=== PATIENT | female | born 1940 | race Caucasian/White ===

== ENCOUNTER → 2017-03-09 | Outpatient (CLI) | payer OTHER ==
--- NOTE | 2017-03-09 13:22 | MAMMOGRAPHY REPORT ---
BILATERAL DIGITAL SCREENING MAMMOGRAM WITH CAD: 03/09/2017 CLINICAL HISTORY: Routine screening. Patient has no complaints. TECHNIQUE: Bilateral CC and MLO views were obtained. Current study was also evaluated with a Compute r Aided Detection (CAD) system. COMPARISON: Comparison is made to exams dated: 03/04/2016 mammogram, 03/01/2015 mammogram, 02/23/2014 m ammogram, 02/21/2013 mammogram, 02/17/2012 mammogram, and 02/12/2011 mammogram - [facility]. BREAST COMPOSITION: The tissue of both breasts is almost entirely fatty. FINDINGS: There is stable focal asymmetry in the 8:00 anterior right breast. A few benign-appearing calcifications in the right breast. No new suspicious mass, architectural distortion or cluster of m icrocalcifications is seen. ACR BI-RADS CATEGORY 1: NEGATIVE There is no mammographic evidence of malignancy. A 1 year screening mammogram is recommended. The pa tient will receive written notification of the results. Approximately 10% of breast cancers are not detected with mammography. A negative mammographic report should not delay biopsy if a clinically suggestive mass is present. Rhianna Velasquez M.D. ay/:03/09/2017 08:38:00 Animal Cytologist: Magda KWON(R)(M)(BD), [facility] letter sent: Normal 1/2 BI-RADS Code: ACR BI-RADS Category 1: Negative
== END | disposition home or self-care (01) ==
LOC: C.MAMM 07:53
PROVIDERS: ATTEND Family Medicine
DX: Z12.31 Encounter for screening mammogram for malignant neoplasm of breast (principal)

== ENCOUNTER 2023-06-23 10:13 | Observation (INO) ==
--- NOTE | 2023-05-20 12:11 | PAT Medication Instructions ---
Medication Instructions Date of Service May 20, 2023 Home Medications diphenhydramine 25 mg-acetaminophen 500 mg tablet (Tylenol PM Extra Strength) 1 tab PO HS PRN sleep tamoxifen 20 mg tablet 20 mg PO QAM ropinirole 0.5 mg tablet 0.5 mg PO QPM acetaminophen 500 mg capsule 500 - 1,000 mg PO Q6H PRN Pain latanoprost 0.005 % eye drops 1 drp OPB HS ASK your prescriber and surgeon tamoxifen 20 mg tablet 20 mg PO QAM Take morning of surgery With a small sip of water, OTHERWISE NOTHING TO EAT OR DRINK AFTER MIDNIGHT: acetaminophen 500 mg capsule 500 - 1,000 mg PO Q6H PRN Pain (if needed) Take evening before surgery diphenhydramine 25 mg-acetaminophen 500 mg tablet (Tylenol PM Extra Strength) 1 tab PO HS PRN sleep (if needed) ropinirole 0.5 mg tablet 0.5 mg PO QPM acetaminophen 500 mg capsule 500 - 1,000 mg PO Q6H PRN Pain (if needed) latanoprost 0.005 % eye drops 1 drp OPB HS Other Notes If you have any questions please call us at [phone] or [phone] or [phone] or [phone]
--- NOTE | 2023-05-27 09:19 | Anesthesiology Consultation ---
Date of Service May 27, 2023 Assessment & Plan (1) Encounter for pre-operative examination: - Infectious disease screening: Per assessment on 05/27/23: No known infectious disease contacts or current infectious disease symptoms. No noted Covid positive test result in past 90 days. - Outpatient joint assessment: Pt currently scheduled for inpatient pathway. If surgeon requests review for outpatient joint pathway, patient is not recommended candidate for outpatient joint program from anesthesia standpoint. Chart Review Chart Review: Acceptable Risk for Surgery and Patient seen in Pre Admission Testing Teaching & Discussion Pre-Anesthesia Teaching/Discussion Notes: Instructed NPO after midnight before surgery,except medications with 15 cc of water. Medication instructions provided according to the PAT guidelines. p History Surgery Operation Date: 06/23/23 12:10 Proposed Procedures p Right Total Knee Arthroplasty - Kamran Nicholson DO Height/Weight Height: 5 ft 6 in Weight: 83.6 kg Allergies Allergy/AdvReac Type Severity Reaction Status Date / Time No Known Allergies Allergy Verified 05/20/23 11:09 Medications Home Medications Medication Instructions Recorded Confirmed Last Taken diphenhydramine 25 1 tab PO HS PRN sleep 07/14/18 05/20/23 04/08/20 mg-acetaminophen 500 mg tablet (Tylenol PM Extra Strength) tamoxifen 20 mg tablet 20 mg PO QAM 04/13/19 05/20/23 04/29/20 ropinirole 0.5 mg tablet 0.5 mg PO QPM 04/01/20 05/20/23 04/29/20 acetaminophen 500 mg capsule 500 - 1,000 mg PO Q6H PRN Pain 05/20/23 05/20/23 Unknown latanoprost 0.005 % eye drops 1 drp OPB HS 05/20/23 05/20/23 Unknown Past Medical History Medical History BCC (basal cell carcinoma) Glaucoma HX: breast cancer Right lumpectomy with SLN biopsy (2018), XRT Arthritis Restless leg syndrome H/O fracture of foot Fractured bone spur in right foot Exercise / Class Metabolic Activity III < 4 Walking/Shop/Light housework (uses cane) Past Family History Family History Mother , 76yo Stroke Smoker Father , 64yo Lung cancer Smoker Brother No problems noted. Daughter No problems noted. Daughter No problems noted. 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" H/O arthroscopy of right knee History of cholecystectomy History of bunionectomy right foot H/O lumpectomy Right lumpectomy with SLN biopsy (2018) "no limb restrictions" History of appendectomy H/O: x1 Past Anesthesia History No Hx of Anesthesia Complications and No Family Hx of Anesthesia Complications History of PONV History of PONV (+ abdominal bloating) and Hx of Motion Sickness Social History Smoking Status: Never smoker Do You Dip or Chew Tobacco: No Hx Alcohol Use: Yes Alcohol type: wine alcohol intake frequency: a few times a week substance use type: does not use Review of Systems Patient denies chest pain, shortness of breath, dyspnea on exertion, fever, chills, cough, wheezing, palpitations. Physical Exam Vital Signs VITALS BP 144/73 P 75 TEMP 98.0 SP02 96%RA RESP 16 PHYSICAL Full cervical extension range of motion. Full TMJ range of motion. TMD 3 finger breaths Mallampati Score 1 Dentition: upper partial, missing lower sides Lungs: clear throughout to auscultation Cardiac: regular rate and rhythm, no murmurs noted Spine: normal Carotid arteries: negative bruit Extremities: no LE edema Lab Results Anesthesia Preop Results Results Anesthesia Widget: WBC 5.07 K/ul (4.8-10.8) 05/27/23 Hgb 13.4 g/dl (12.0-16.0) 05/27/23 Hct 40.6 % (37.0-47.0) 05/27/23 Plt 211 K/uL (130-400) 05/27/23 Na 140 mmol/L (136-145) 05/27/23 K 3.8 mmol/L (3.5-5.1) 05/27/23 Cl 109 mmol/L (98-107) H 05/27/23 CO2 26 mmol/L (21-32) 05/27/23 BUN 11 mg/dl (6-23) 05/27/23 Creat 0.67 mg/dl (0.6-1.2) 05/27/23 Glucose Level 99 mg/dl (70-99(Fasting)) 05/27/23 PT 10.7 Seconds (9.0-12.0) 05/27/23 PTT 25.4 Seconds (21.0-31.0) 05/27/23 INR 1.0 (0.9-1.1) 05/27/23 Blood Type O Positive 05/27/23 Antibody Screen NEGATIVE 05/27/23 Testing Electrocardiogram Date: 05/27/23 NSR at 70bpm. "Possible Old (cited on or before 26-MAR-2016)" No significant change compared to 03/26/2016 per builder operator comparison. Unconfirmed report had noted "cannot r/o anterior infarct" Chest X-Ray Date: 05/27/23 FINDINGS: No lines and tubes are seen. The cardiomediastinal silhouette is normal. The lungs are clear. No evidence of pleural effusion or pneumothorax. Degenerative changes in the thoracic spine. IMPRESSION: No acute chest disease.
[~2023-06-23 10:13] MED LIST: ACETAMINOPHEN 500 MG TAB PO SCH; BUPIVACAINE 0.5 % 5 MG/1 ML PF 10ML VIAL ONE; FAMOTIDINE 20 MG TAB PO SCH; GABAPENTIN 300 MG CAP PO SCH; LR 500ML BOLUS, THEN 15ML/HR IV SCH; LR 60ML/HR IV SCH; ORTHO JOINT MIX INFIL SCH; ROPIVACAINE 0.5% 5 MG/ML 30 ML VIAL ONE; TRANEXAMIC ACID 1,000 MG **IV Intra-op IV SCH; TRANEXAMIC ACID 1,000 MG **IV Pre-op IV SCH; ceFAZolin 2000MG 2,000 MG/15 ML SYR IV SCH; dexAMETHasone 4 MG TAB PO SCH
[2023-06-23] MEDS ORDERED: MIDAZOLAM HCL 1 MG/ML 2ML VIAL ONE (11:01)
[2023-06-23] MEDS ORDERED: PROPOFOL IV EMULSION 10 MG/ML 20 ML VIAL IV ONE (11:01)
[2023-06-23] MEDS ORDERED: LIDOCAINE 2% 2 ML VIAL/AMP(20MG/ML) INFIL ONE (11:01)
[2023-06-23] MEDS ORDERED: ePHEDrine sulfate 50 MG/ML AMP IV PRN (12:13)
[2023-06-23] MEDS ORDERED: fentaNYL citrate PF 100 MCG/2 ML VIAL IV PRN (12:13)
[2023-06-23] MEDS ORDERED: ONDANSETRON INJ 2 MG/ML 2 ML VIAL IV PRN ×2 (12:13→16:58)
[2023-06-23] MEDS ORDERED: ATROPINE SULFATE 0.1 MG/ML 10ML SYR IV PRN (12:13)
[2023-06-23] MEDS ORDERED: ORTHO JOINT ANESTHETIC ONE (12:32)
--- NOTE | 2023-06-23 12:37 | History & Physical Bridge Note ---
Date of Service June 23, 2023 History & Physical Bridge Note I have examined the patient, reviewed the History & Physical and in the interval since the performance of the History & Physical I have noted the following changes of clinical significance: no changes noted
[2023-06-23] MEDS ORDERED: fentaNYL citrate PF 100 MCG/2 ML VIAL ONE (12:38)
--- NOTE | 2023-06-23 14:45 | Operative Report ---
PG Post Operative Report Pre & Post Diagnosis Operation Date: 06/23/23 12:00 Pre-Op Diagnosis: Degenerative Joint Disease Knee Right Post-Op Diagnosis: Degenerative Joint Disease Knee Right I identified the patient and participated in the time-out.: Yes Procedure Operation Date: 06/23/23 12:00 Actual Procedures p Right Total Knee Arthroplasty(Right) - Kamran Nicholson DO Surgeon Kamran Nicholson DO Commodities Manager Seth Jorgensen PA-C Estimated Blood Loss 30 Findings Consistent with Post-Op Diagnosis Specimens Right femoral and tibial bone Description of Procedure Implants used: I used a Chris Persona total knee arthroplasty system with a size 6 standard PS femur, D tibia, 28 oval patella, and a size 12 CPS polyethylene bearing. All components were cemented in place with Biomet cement. Shauna arrived [facility] for the above procedure. She was seen in the preoperative holding area and the operative extremity was identified and signed. She was given a preoperative antibiotic, TXA, a spinal anesthetic and an adductor nerve block. She was taken back to the operating room and laid on the table in supine position. She was given basic sedation. The operative knee was then prepped and draped in sterile fashion. A timeout was done, and the patient and the operative extremity was properly identified. A midline incision was made directly over the patella. Dissection was taken down to the extensor mechanism. A midvastus arthrotomy was used. The medial retinaculum was released and the fat pad was mostly excised. The knee was flexed and the ACL, PCL, and meniscus were removed. A drill was sent down the center of the femoral canal followed by an intramedullary radames. Off that radames a distal femoral cutting block was placed. 9 mm was resected off the distal femur at 5 of valgus. A posterior referencing AP sizing guide was then placed on the distal femur. The femur measured to be a size 6. 2 drill holes were placed in 3 of external rotation. A 4-in-1 cutting block was then impacted into place. Anterior, posterior, and chamfer cuts were then made. The proximal tibia was then exposed. An external tibial alignment guide was placed. A tibial cut guide was then anchored in place and the proximal tibia was then resected. The posterior aspect of the knee was then opened up and any additional meniscus fragments and osteophytes were removed. The tibia measured to be a size D. The tibial plate was then placed in the appropriate rotation and the tibia was drilled and punched. Trial components were then placed. I used a size 12 CPS polyethylene insert. The knee was brought through a full range of motion and felt to be stable. The peg holes for the femoral component were then drilled. The patella was then everted and 9 mm was resected off the posterior aspect of the patella. The patella measured to be a size 28 oval. 3 peg holes were then drilled. A trial patella was placed. The knee was once again brought through a full range of motion and felt to be stable. Trial components were then removed. The surrounding soft tissues were injected with 100 cc of an orthopedic pain control cocktail. All components were then cemented into place with Biomet cement. The final polyethylene insert was then snapped into place. Once cement was dry the tourniquet was deflated. Hemostasis was obtained. A dilute betadyne lavage was then done for 3 minutes. The joint was then irrigated with normal saline solution. The midvastus arthrotomy was then closed with #1 Vicryl suture. The skin was closed with 2-0 Vicryl, 3-0V lock suture, and navi. A soft compressive dressing was placed. She was then transferred to a hospital bed and taken to the postanesthesia care unit in stable condition. She tolerated the procedure well. Seth Jorgensen PA-C, was present for the entire procedure. He was critical for patient positioning, prepping, draping, retraction exposure, wound closure and application of sterile dressing. I attest to the content of the Intraoperative Record and any orders documented therein. Any exceptions are noted below.
--- NOTE | 2023-06-23 15:47 | Anesthesiology Progress Note ---
Date of Service June 23, 2023 Anesthesia Post Procedure Vital Signs Vital Signs: Temp Pulse Pulse Resp BP Pulse Ox O2 Del Method 06/23/23 15:35 70 13 142/84 H 93 Room Air 06/23/23 15:25 71 16 140/75 92 Room Air 06/23/23 15:15 36.6 C 73 15 138/79 93 Room Air 06/23/23 15:05 73 14 142/80 H 93 Room Air 06/23/23 14:55 80 15 127/72 93 Room Air 06/23/23 14:45 86 15 127/76 94 Room Air 06/23/23 14:39 36.5 C 85 15 132/74 93 Room Air 06/23/23 10:33 36.9 C 92 H 18 160/89 H 99 Room Air Pain Intensity Right Knee: Pain Intensity: 2 Transfer of Care Handoff Completed per policy Notes Mental Status: alert / awake / arousable and participated in evaluation Patient Amnestic to Procedure: Yes Nausea / Vomiting: adequately controlled Pain: adequately controlled Airway Patency, RR, SpO2: stable & adequate BP & HR: stable & adequate Hydration State: stable & adequate Neuraxial Anesthesia: was administered and sensory block is resolving Anesthetic Complications: no major complications apparent and Pt Satisfied with anesthetic care
--- NOTE | 2023-06-23 16:26 | XRay Report ---
TWO VIEWS RIGHT KNEE CLINICAL HISTORY: Postoperative examination. FINDINGS: AP and crosstable lateral portable views of the right knee are obtained. A right knee arthr oplasty is in near anatomic alignment. There has been undersurface remodeling of the patella. No acut e fracture is seen. There are expected postoperative changes around the knee including skin clips, so ft tissue edema, and subcutaneous gas. IMPRESSION: Expected postoperative changes status post right knee arthroplasty. No acute fracture is seen. ACT 112: Negative or not required by law. Electronically signed by: Vasiliy Vasquez M.D. 06/23/2023 4:24 PM
[2023-06-23] MEDS ORDERED: METOCLOPRAMIDE HCL INJ 5 MG/ML 2 ML VIAL IV PRN (16:58)
[2023-06-23] MEDS ORDERED: MAGNESIUM HYDROXIDE SUSP 30 ML UDC PO PRN (16:58)
[2023-06-23] MEDS ORDERED: NALOXONE HCL 0.4 MG/1 ML VIAL/CARP IV PRN (16:58)
[2023-06-23] MEDS ORDERED: HYDROmorphone INJ 0.5 MG/0.5 ML SYR IV PRN (16:58)
[2023-06-23] MEDS ORDERED: bisacodyL 10 MG SUPP PR PRN (16:58)
[2023-06-23] MEDS ORDERED: oxyCODONE HCL IR 5 MG TAB (IMMEDIATE RELEASE) PO PRN (16:58)
[2023-06-23] MEDS ORDERED: traMADol HCL 50 MG TABLET PO PRN (16:58)
[2023-06-23] MEDS: SODIUM CHLORIDE 0.9% 1,000 ML IV SCH (17:51)
[2023-06-23] MEDS: KETOROLAC TROMETHAMINE 15 MG/ML VIAL IV SCH ×2 (18:28→23:20)
[2023-06-23 18:46] VITALS: RESP 16
[2023-06-23] MEDS ORDERED: rOPINIRole HCL 0.25 MG TABLET PO SCH (21:00)
[2023-06-23] MEDS ORDERED: SENNA 8.6 MG TAB PO SCH (21:00)
[2023-06-23] MEDS ORDERED: LATANOPROST 0.005% OP SOLN 2.5 ML BTL OPB SCH (21:00)
[2023-06-23] MEDS: ceFAZolin 2000MG 2,000 MG/15 ML SYR IV SCH (21:35)
[2023-06-23] MEDS: ASPIRIN 81 MG ECTAB PO SCH (21:37)
[2023-06-23] MEDS: DOCUSATE SODIUM 100 MG CAP PO SCH (21:37)
[2023-06-23] MEDS: ACETAMINOPHEN 500 MG TAB PO SCH (21:38)
[2023-06-23 23:21] VITALS: O2SAT 96
[2023-06-24] MEDS: ACETAMINOPHEN 500 MG TAB PO SCH (05:08)
[2023-06-24] MEDS: KETOROLAC TROMETHAMINE 15 MG/ML VIAL IV SCH (05:08)
[2023-06-24] MEDS: SODIUM CHLORIDE 0.9% 1,000 ML IV SCH (05:09)
[2023-06-24] MEDS: ceFAZolin 2000MG 2,000 MG/15 ML SYR IV SCH (05:09)
[2023-06-24] MEDS ORDERED: dexAMETHasone 4 MG TAB PO SCH (08:00)
[2023-06-24 08:08] VITALS: BP 127/77; PULSE 85; TEMP 97.5
[2023-06-24] MEDS: DOCUSATE SODIUM 100 MG CAP PO SCH (08:31)
[2023-06-24] MEDS: ASPIRIN 81 MG ECTAB PO SCH (08:31)
[2023-06-24] MEDS ORDERED: TAMOXIFEN CITRATE 10 MG TABLET PO SCH (09:00)
[2023-06-24] MEDS ORDERED: MULTIVITAMIN TAB PO SCH (09:00)
--- NOTE | 2023-06-24 09:29 | Orthopedic Progress Note ---
Date of Service June 24, 2023 Assessment & Plan (1) Status post right knee replacement: Overall she is doing quite well today with good pain control to the right knee. She is going to work with physical therapy today to work on ambulation and range of motion exercises. She is on aspirin for DVT prophylaxis. She can be discharged home later today. She will follow-up with orthopedics in 2 weeks for postoperative care. Subjective . Shauna was seen and evaluated today resting comfortably in bed in no apparent distress. She notes that her pain is well-controlled to her right knee. She has been up and ambulating to the bathroom. She denies any other concerns at this point. Review of Systems All systems reviewed & are unremarkable except as noted in HPI & below. Physical Exam . On physical examination the right knee, dressings are in place, clean, dry and intact. Her leg is out in full extension. Active plantarflexion dorsiflexion to the right ankle. +2 DP and PT pulses. Less than 2-second capillary refill. Normal sensation. Neurovascular intact. Results & Data Results & Data Laboratory Results . Diagnostic Findings . Postoperative x-rays of the right knee showed prosthesis to be in anatomical alignment with no signs of fracture complication or loosening. PG Care Time/CCT Total # of Minutes Spent Total Time Spent with Patient: Total time spent is greater than 50% in coordination of care (as documented) at patient's floor/unit and/or counseling patient: Coding Level of Care Code 86670 Post Operative Follow-Up Diagnoses Status post right knee replacement Z96.651
--- NOTE | 2023-06-24 09:31 | Discharge Summary ---
Date of Service June 24, 2023 Principal Diagnosis Same as "Discharge Diagnosis" noted below under Discharge Instructions. Discharge Exam . On physical examination the right knee, dressings are in place, clean, dry and intact. Her leg is out in full extension. Active plantarflexion dorsiflexion to the right ankle. +2 DP and PT pulses. Less than 2-second capillary refill. Normal sensation. Neurovascular intact. Discharge Data Procedures Performed Operation Date: 06/23/23 12:00 Actual Procedures p Right Total Knee Arthroplasty(Right) - Kamran Nicholson DO Ordered Studies 06/23/23 05:00 US - OR guided needle placemen Routine Hospital Course (1) Status post right knee replacement: On June 23, 2023 Shauna arrived at [facility] and underwent a right total knee arthroplasty without complications. She had a spinal anesthetic. Postoperatively, she was started on aspirin for DVT prophylaxis and transferred to the general orthopedic floor in stable condition. Her hospital course was uneventful. On postoperative day #1, her vital signs were stable and her pain was well-controlled. She participated well with physical therapy working on ambulation and range of motion exercises. She was discharged home in stable condition. She will follow-up with orthopedics in 2 weeks for postoperative care. PG Care Time/CCT Total # of Minutes Spent Total Time Spent with Patient: Total time spent is greater than 50% in coordination of care (as documented) at patient's floor/unit and/or counseling patient: Discharge Plan Discharge Items Patient Disposition: Home - Home Health Services Reason For Visit: POST OP RIGHT TKA Discharge Diagnosis: Same Activity: Per Instructions section Non-emergency contact: Surgeon Call non-emergency contact if: your temperature is above 101.5, your wound has increased redness and your wound has increased drainage Follow-up/Referrals: Victorino Caicedo MD [Primary Care Provider] - Diet: Regular Addtl Attending Provider Instructions: Activity and Therapy Recommendations: * If you are using [facility] then therapy will be provided at your home until they feel you have accomplished all of your goals. * If you are using [facility] then Physical Therapy will be provided until they feel you are ready to start Outpatient Physical Therapy. * If you are not using home therapy then Outpatient Physical Therapy should start about 3-5 days from your day of surgery. Therapy will last about 6-10 weeks * It is important not to put a pillow under your knee when you are relaxing or sleeping. It is just as important to make sure you are getting your knee perfectly straight as it is to regain your knee bend. * You were shown a series of exercises in the hospital. Do these exercises three times each day including the exercises you were shown in physical therapy. * Get up and walk several times each day. For the first four weeks, try not to stand or walk for more than one hour at a time. If you do stand or walk for more than one hour, you will not hurt anything, but your leg will likely swell. * As you feel comfortable, you may change from the walker or crutches to a cane and then to independent walking. Medications: * Narcotic You will likely be sent home from the hospital with a prescription for the narcotic pain medication that worked best throughout your stay. * Cefadroxil -take the antibiotic twice a day for 10 days to help prevent infection. * Aspirin Most patients will be required to take Aspirin 81mg twice a day for 6 weeks after surgery. This is obtained [id number]-wrhuxoa and a prescription is not necessary. * Other medications may be prescribed for specific circumstances. If you have any questions, please call the office at . * Resume previous home medications unless otherwise instructed TEDs/Elastic Stockings: The white elastic stockings help limit swelling and prevent blood clots from forming in your legs.~ The more you wear them, the more they work. Wear them for six weeks. Dressing Care: The dressing can be changed after physical therapy on postop day #1. Daily dry dressing changes for a few days, especially if the incision is still draining some. If the incision is not draining then you may leave the navi open to air. If there is a little bit of drainage or if the navi are getting stuck on your clothing then cover the incision with a dry dressing. The navi will be removed at your 2 week follow-up appointment. Showering: You may shower 5 days from the day of surgery as long as the incision is no longer draining. You may shower with the navi exposed. Let soapy water run over the navi and pat them dry. Do not scrub or soak the incision. Things To Watch For: * Drainage from the incision site that occurs more than one week after your surgery. * Increased redness at the incision site. * Fever above 102 degrees Fahrenheit. * Unusual chest pain or shortness of breath. * Call [facility] at with any of the above problems Follow-Up Visit: Follow-up with Dr. Nicholson's PA (Kamran Gallo) 2-3 weeks after your day of surgery. He will remove your navi and answer any questions. If you have any additional questions or concerns, Dr Nicholson is usually in the office at the same time and will be available An appointment was probably scheduled when you signed-up for surgery in the office. If you have any questions call Office Instructions: More detailed instructions as well as Frequently Asked Questions were provided in a folder by our office when you signed-up for surgery. Please review these instructions when you get home. If you have any further questions or concerns, please feel free to call the office at [phone] Pending Studies at Discharge: No Stand-Alone Forms: My [facility], Smoking Cessation Medications and DC Order Prescriptions: New aspirin 81 mg Tablet,Delayed Release (Dr/Ec) 81 mg PO BID 42 Days Qty: 0 0RF oxycodone 5 mg Tablet 5 - 10 mg PO Q6 PRN (Reason: pain) Qty: 30 0RF cefadroxil 500 mg capsule 500 mg PO BID 10 Days Qty: 20 0RF Continued diphenhydramine-acetaminophen [Tylenol PM Extra Strength] 25-500 mg tablet 1 tab PO HS PRN (Reason: sleep) tamoxifen 20 mg tablet 20 mg PO QAM ropinirole 0.5 mg Tablet 0.5 mg PO QPM latanoprost 0.005 % Drops 1 drp OPB HS acetaminophen 500 mg Capsule 500 - 1,000 mg PO Q6H PRN (Reason: Pain) Admission Data Admit Date/Time: 06/23/23 14:45 Attending Provider: Kamran Nicholson Admit Provider: Kamran Nicholson Primary Care Provider: Victorino Caicedo
== END 2023-06-24 12:07 | disposition home health service (06) ==
LOC: 3W 10:13 → ASU 10:13